=== PATIENT | male | born 1965 | race Caucasian/White ===

== ENCOUNTER 2018-03-18 12:20 | Emergency (ER) | payer BC ==
[~2018-03-18] VITALS: Ht 175.3 cm; Wt 83.9 kg
[2018-03-18] MEDS ORDERED: [UNRECOGNIZED DRUG - REMARK] (12:28)
[2018-03-18] MEDS ORDERED: ACET-1467 PO (12:28)
[2018-03-18] MEDS ORDERED: MORPHINE SULFATE 2 MG/1 ML DISP.SYRIN IV ONE (12:30)
[2018-03-18] MEDS ORDERED: ONDANSETRON 4 MG/2 ML VIAL IV ONE ×2 (12:30→14:00)
[2018-03-18] MEDS ORDERED: ONDANSETRON 4 MG/2 ML VIAL ONE ×2 (12:39→14:02)
[2018-03-18] MEDS ORDERED: MORPHINE SULFATE 4 MG/1 ML DISP.SYRIN ONE ×2 (12:39→13:04)
[2018-03-18 12:53] LABS: BASOPHILS # (AUTO) 0.1 K/uL (0.0-8.0); BASOPHILS % (AUTO) 0.5 % (0.0-2.0); EOSINOPHILS # (AUTO) 0.1 K/uL (0.0-0.7); EOSINOPHILS % (AUTO) 0.9 % (0.0-7.0); HEMATOCRIT 38.9 % (36.7-47.1); HEMOGLOBIN 13.4 g/dL (12.5-16.3); LYMPHOCYTES # (AUTO) 4.8 K/uL (20.0-40.0); LYMPHOCYTES % (AUTO) 28.7 % (20.5-51.5); MEAN CORPUSCULAR HEMOGLOBIN 29.4 uug (23.8-33.4); MEAN CORPUSCULAR HGB CONC 35 g/dL (32.5-36.3); MONOCYTES % (AUTO) 5.7 % (0.0-11.0); NEUTROPHILS # (AUTO) 10.9 K/uL (1.8-8.9); NEUTROPHILS % (AUTO) 64.2 % (38.5-71.5); PLATELET COUNT (AUTO) 269 K/uL (152-348); RED BLOOD CELL COUNT(AUTO) 4.58 MIL/uL (4.06-5.63); WHITE BLOOD COUNT (AUTO) 16.9 K/uL (3.6-10.2)
[2018-03-18 13:02] LABS: CREATININE 1.1 mg/dL (0.6-1.3); POTASSIUM 3.9 mmol/L (3.5-5.1)
[2018-03-18 13:13] LABS: BILIRUBIN,DIRECT 0.1 mg/dL (0.0-0.2); BILIRUBIN,TOTAL 0.3 mg/dL (0.2-1.0); TOTAL PROTEIN, SERUM 7.2 g/dL (6.4-8.2)
[2018-03-18] MEDS ORDERED: SWABABLE VALVE TRANSFER SET EA MC ONE (13:15)
[2018-03-18] MEDS ORDERED: IOHEXOL 300MG/ML 100 ML INFUS..BTL ONE (13:15)
[2018-03-18] MEDS ORDERED: IV NORMAL SALINE 100 ML ONE (13:15)
[2018-03-18] MEDS ORDERED: MORPHINE SULFATE 4 MG/1 ML DISP.SYRIN IV ONE (13:15)
[2018-03-18] MEDS ORDERED: HYDROMORPHONE 2 MG/1 ML DISP.SYRIN ONE (13:54)
[2018-03-18] MEDS ORDERED: IV NORMAL SALINE 1000 ML BAG IV ONE ×2 (14:00→14:45)
[2018-03-18] MEDS ORDERED: HYDROMORPHONE 1 MG/1 ML DISP.SYRIN IV ONE (14:00)
--- NOTE | 2018-03-18 14:00 | NUR ---
Radiology called for CRITICAL RESULT, read back to [facility].
--- NOTE | 2018-03-18 14:05 | NUR ---
Call placed to [facility] for higher level of care.
--- NOTE | 2018-03-18 14:26 | NUR ---
911 emergency Patient Tranfer to outside Facility Physician: Dr. Braxton Location: [facility]
--- NOTE | 2018-03-18 14:30 | NUR ---
Report given to VALE Lou at [facility].
[2018-03-18 14:35] LABS: HEMATOCRIT 33.8 % (36.7-47.1); HEMOGLOBIN 11.3 g/dL (12.5-16.3)
== END 2018-03-18 14:47 | disposition short-term general hospital (02) ==
LOC: ER 12:21
DX: S22.42XA Multiple fractures of ribs, left side, initial encounter for closed fracture (principal); S36.032A Major laceration of spleen, initial encounter; Z79.2 Long term (current) use of antibiotics; Z79.891 Long term (current) use of opiate analgesic; V48.5XXA Car driver injured in noncollision transport accident in traffic accident, initial encounter; Y93.89 Activity, other specified; Y99.8 Other external cause status; Y92.410 Unspecified street and highway as the place of occurrence of the external cause
CPT/HCPCS: 36415; 71045; 72040; 74177; 80048; 80076; 85018; 85025; 85730; 86850; 86900; 86901; 96374; 96375; 96376; 99285; A4663; J1170; J2270 ×2; J2405 ×2; J3490; J7030; Q9967